=== PATIENT | female | born 1975 | race Hispanic/Latino ===

== ENCOUNTER 2016-12-09 12:43 | Emergency (ER) | payer MEDICAID, OTHER ==
[2016-12-09 12:43] VITALS: BMI 32.4
--- NOTE | 2016-12-09 14:25 | ED PDOC ---
Lower Extremity Pain/Injury Time Seen by Provider: 12/09/16 13:35 Chief Complaint (Nursing): Lower Extremity Problem/Injury Chief Complaint (Provider): right foot pain History Per: Patient History/Exam Limitations: no limitations Current Symptoms Are (Timing): Still Present Additional Complaint(s): Evelin Fair is a 41 year old female who presents to the emergency department for an evaluation of right foot pain after she caught her toe on the legs of a chair on 12/07/16. Patient states that her right toe bent laterally away from rest of foot, possibly dislocating it. Patient states she popped her toe back into place. She reports taking Tylenol and uses a walking cane temporarily to help relieve pain which has helped. Past Medical History Reviewed: Historical Data, Nursing Documentation, Vital Signs - Medical History PMH: Depression, Gastritis - Surgical History Other surgeries: breast augmentation, facial plastic surgery - Family History Family History: States: No Known Family Hx - Living Arrangements Living Arrangements: With Friends/Others - Social History Current smoker - smoking cessation education provided: Yes Alcohol: None Drugs: Denies - Home Medications Home Medications: Ambulatory Orders Medication Instructions Recorded Albuterol HFA [Ventolin HFA 90 2 puff IH Q4H #1 puff 07/26/15 mcg/actuation (8 g)] Escitalopram [Lexapro] 1 tab PO DAILY 04/01/16 Guaifenesin [Mucinex] 1 tab PO PRN PRN 04/01/16 Ranitidine HCl [Zantac] 1 tab PO DAILY 04/01/16 clonazePAM [Klonopin] 1 tab PO HS 04/01/16 - Allergies Allergies/Adverse Reactions: Allergies Allergy/AdvReac Type Severity Reaction Status Date / Time No Known Allergies Allergy Verified 12/02/15 00:19 Wells Criteria for PE - Wells Criteria for Pulmonary Embolism Clinical Signs and Symptoms of DVT: No P.E is #1 Diagnosis, or Equally Likely: No Heart Rate >100: No Immobilization at least 3 days;Surgery previous 4 weeks: No Previous, objectively diagnosed PE or DVT: No Hemoptysis: No Malignancy w/treatment within 6 months, or palliative: No Total Score: 0 Review of Systems ROS Statement: Except As Marked, All Systems Reviewed And Found Negative Musculoskeletal: Positive for: Foot Pain (right foot injury sustained 2 days ago ) Physical Exam - Reviewed Nursing Documentation Reviewed: Yes Vital Signs Reviewed: Yes - Physical Exam Appears: Positive for: Well, Non-toxic, No Acute Distress Skin: Positive for: Normal Color. Negative for: Rash Extremity: Positive for: Other (mild tenderness 4th and 5th toes and metatarsal regions, no bony deformity noted, full rom of all toes with pain, nontender right ankle). Negative for: Deformity Neurologic/Psych: Positive for: Alert, Oriented - Laboratory Results Urine POC: Negative - ECG O2 Sat by Pulse Oximetry: 99 Pulse Ox Interpretation: Normal - Other Rad Right foot x-ray X-Ray: Interpreted by Me, Viewed By Me X-Ray Interpretation: no fx, no dis Medical Decision Making Medical Decision Making: Initial Impression: Right foot injury Initial Plan: * Urine * Motrin 600mg PO * Xray foot (right) Motrin helped the pain as per patient. X-ray is negative for fracture or dislocation. Patient declined crutches, she has a cane. See procedure note. Patient was referred to podiatry clinic for follow up. Advised NSAID's for pain. Scribe Attestation: Documented by Tonya Garrido, acting as a scribe for Elizabeth Alexander PA-C. Provider Scribe Attestation: All medical record entries made by the Scribe were at my direction and personally dictated by me. I have reviewed the chart and agree that the record accurately reflects my personal performance of the history, physical exam, medical decision making, and the department course for this patient. I have also personally directed, reviewed, and agree with the discharge instructions and disposition. Procedures - Splinting Location: right foot Pre-Made Type: 4th and 5th toes jun tape, then ortho shoe applied to right foot Pre-Proc Neuro Vasc Exam: normal Post-Proc Neuro Vasc Exam: normal Disposition - Clinical Impression Clinical Impression: Toe sprain, Foot contusion - Patient ED Disposition Is Patient to be Admitted: No Counseled Patient/Family Regarding: Studies Performed, Diagnosis, Need For Followup - Disposition Referrals: Podiatry Clinic [Outside] Disposition: Routine/Home Disposition Time: 15:48 Condition: STABLE Additional Instructions: Ice, rest and elevate affected area. Take over the counter advil for pain. Follow up with podiatry clinic for any persistent symptoms. Instructions: Foot Contusion (ED), Foot Sprain (ED)
--- NOTE | 2016-12-09 15:40 | RAD ---
PROCEDURE: Right Foot Radiographs. HISTORY: trauma COMPARISON: None. FINDINGS: BONES: Normal. No fracture. JOINTS: Normal. SOFT TISSUES: Normal. OTHER FINDINGS: None. IMPRESSION: Normal right foot radiographs.
[2016-12-09 15:51] VITALS: BP 132/78; PULSE 80; RESP 18; TEMP 98.7; O2SAT 99
== END 2016-12-09 15:52 | disposition home or self-care (01) ==
LOC: H.ER 12:43
DX: S90.31XA Contusion of right foot, initial encounter (principal); W22.8XXA Striking against or struck by other objects, initial encounter; Y92.89 Other specified places as the place of occurrence of the external cause

== ENCOUNTER 2017-04-14 10:35 | Emergency (ER) | payer MEDICAID, OTHER ==
[2017-04-14 10:58] VITALS: BP 120/80; PULSE 110; RESP 20; TEMP 98.8; O2SAT 98
[2017-04-14 10:59] VITALS: BMI 31.3
--- NOTE | 2017-04-14 11:24 | ED PDOC ---
Lower Extremity Pain/Injury Time Seen by Provider: 04/14/17 11:13 Chief Complaint (Nursing): Lower Extremity Problem/Injury Chief Complaint (Provider): Lower extremity problem History Per: Patient History/Exam Limitations: no limitations Onset/Duration Of Symptoms: Days (x2 weeks) Current Symptoms Are (Timing): Still Present Severity: Mild Pain Scale Rating Of: 6 Additional Complaint(s): Evelin Fair is a 41 year old female, with no past medical history, who presents to the emergency department complaining of left toe pain s/p ingrown toenail removed 2 weeks ago. Patient states the ingrown toenail was removed on [address] Hunter. She reports an increasing pain and now redness to the area. She denies any fever or proximal foot or ankle pain. No further medical complaints. PMD: None provided. Past Medical History Reviewed: Historical Data, Nursing Documentation, Vital Signs Vital Signs: Last Vital Signs Temp 98.8 F 04/14/17 10:57 Pulse 110 H 04/14/17 10:57 Resp 20 04/14/17 10:57 BP 120/80 04/14/17 10:57 Pulse Ox 98 04/14/17 10:57 - Medical History PMH: Depression, Gastritis Denies: Chronic Kidney Disease - Surgical History Surgical History: Denies: Pacemaker - Family History Family History: States: Unknown Family Hx - Social History Current smoker - smoking cessation education provided: Yes (Heavy smoker >10 cigarettes daily ) Alcohol: Social Drugs: Denies - Home Medications Home Medications: Ambulatory Orders Medication Instructions Recorded clonazePAM [Klonopin] 1 tab PO BID 04/01/16 ARIPiprazole [Abilify] 10 mg PO QAM 01/19/17 Pantoprazole [Protonix] 40 mg PO QAM 01/19/17 traZODone [trazODONE HYDROCHLORIDE] 50 mg PO HS PRN 01/19/17 Cephalexin [cephalexin] 500 mg PO TID #21 cap 04/14/17 - Allergies Allergies/Adverse Reactions: Allergies Allergy/AdvReac Type Severity Reaction Status Date / Time No Known Allergies Allergy Verified 01/19/17 09:24 Review of Systems ROS Statement: Except As Marked, All Systems Reviewed And Found Negative Constitutional: Negative for: Fever Musculoskeletal: Positive for: Foot Pain (left toe, with redness). Negative for : Other (proximal foot or ankle pain) Physical Exam - Reviewed Nursing Documentation Reviewed: Yes Vital Signs Reviewed: Yes - Physical Exam Appears: Positive for: Well, Non-toxic, No Acute Distress Head Exam: Positive for: ATRAUMATIC Skin: Positive for: Normal Color, Warm, Dry Eye Exam: Positive for: Normal appearance, EOMI Respiratory: Negative for: Respiratory Distress Extremity: Positive for: Other (Left hallux appears post procedure from ingrown toenail removal. The medial nailbed trace postulance and erythema along margins. ) Neurologic/Psych: Positive for: Alert, Oriented - ECG O2 Sat by Pulse Oximetry: 98 (RA) Pulse Ox Interpretation: Normal Medical Decision Making Medical Decision Making: Initial Impression: toe pain s/p ingrown toe nail removal Initial Plan: --Patient has been soaking daily with no Abx. 1120 -Consult podiatry for disposition Scribe Attestation: Documented by Jose Daniel Santana, acting as a scribe for Albino Pino MD Provider Scribe Attestation: All medical record entries made by the Scribe were at my direction and personally dictated by me. I have reviewed the chart and agree that the record accurately reflects my personal performance of the history, physical exam, medical decision making, and the department course for this patient. I have also personally directed, reviewed, and agree with the discharge instructions and disposition. Disposition - Clinical Impression Clinical Impression: Ingrown toenail - Patient ED Disposition Is Patient to be Admitted: No Counseled Patient/Family Regarding: Studies Performed, Rx Given - Disposition Referrals: Podiatry Clinic [Outside] Disposition: Routine/Home Disposition Time: 13:01 Condition: STABLE Additional Instructions: Wound care as directed from podiatry. Take antibiotic 3x daily for one week. Return to ER for any worse or new symptoms. Prescriptions: Cephalexin [cephalexin] 500 mg PO TID #21 cap Instructions: Ingrown Nail (ED) Forms: [employer] (Nepali)
--- NOTE | 2017-04-14 12:00 | CP.PCM.CON ---
History of Present Illness - History of Present Illness History of Present Illness: 41 year old female with no past medical history seen in ED complaining of painful left big toe. Patient states that she had ingrown toenails removed on bilateral borders of the hallux on March 31 and has noticed increased redness, pain and purulent drainage to the area since that time. Patient states that she has been soaking her foot nightly and has been applying the topical antibiotic that she was given by the pharmacist aide who did her partial nail originally. Patient states that she never received oral antibiotics from her pharmacist aide. She denies any further medical issues at this time. She denies N/V/F /C/CP/SOB Review of Systems - Review of Systems Review of Systems: ROS unremarkable outside of HPI Past Patient History - Past Medical History & Family History Past Medical History?: Yes - Past Social History Alcohol: Social Drugs: Denies - CARDIAC Hx Pacemaker: No - PULMONARY Hx Respiratory Disorders: No - NEUROLOGICAL Hx Neurological Disorder: No - HEENT Hx HEENT Problems: Yes - RENAL Hx Chronic Kidney Disease: No - ENDOCRINE/METABOLIC Hx Endocrine Disorders: No - HEMATOLOGICAL/ONCOLOGICAL Hx Blood Transfusions: No Hx Blood Transfusion Reaction: No - INTEGUMENTARY Hx Dermatological Problems: No - MUSCULOSKELETAL/RHEUMATOLOGICAL Hx Musculoskeletal Disorders: No - GASTROINTESTINAL Hx Gastritis: Yes - GENITOURINARY/GYNECOLOGICAL Hx Genitourinary Disorders: No Other/Comment: ovarian cysts - PSYCHIATRIC Hx Depression: Yes - SURGICAL HISTORY Hx Surgeries: Yes Other/Comment: breast augmentation,liposuction - ANESTHESIA Hx Anesthesia: Yes Hx Anesthesia Reactions: No (PT DENIES REACTIONS) Meds Home Medications: Home Medication List Medication Instructions Recorded Confirmed Type Cephalexin [cephalexin] 500 mg PO TID #21 cap 04/14/17 Rx Allergies/Adverse Reactions: Allergies Allergy/AdvReac Type Severity Reaction Status Date / Time No Known Allergies Allergy Verified 01/19/17 09:24 Physical Exam - Constitutional Appears: Well, Non-toxic, No Acute Distress - Extremities Exam Additional comments: LE focused exam Vasc: DP/PT pulses palpable 2/4 b/l. Skin temperature warm to warm from proximal to distal. CFT < 3 seconds to all digits b/l. Pedal hair growth appreciated. Minimal edema noted to left hallux medial nail border Neuro: Epicritic and protective sensation grossly intact b/l Derm: Evidence of partial nail avulsions at medial and lateral border of left hallux. No clinical signs of infection noted to lateral nail border. Medial nail border noted to be edematous, erythematous, with minimal purulent drainage noted and moderate serous drainage noted from the site MSK: POP to medial hallux nail border of left foot. MMT 5/5 on inversion, eversion, dorsiflexion and plantarflexion of feet b/l. ROM WNL to all major joints of LE - Neurological Exam Neurological exam: Alert, Oriented x3 - Psychiatric Exam Psychiatric exam: Normal Affect, Normal Mood Results - Vital Signs Recent Vital Signs: Last Vital Signs Temp 98.8 F 04/14/17 10:57 Pulse 110 H 04/14/17 10:57 Resp 20 04/14/17 10:57 BP 120/80 04/14/17 10:57 Pulse Ox 98 04/14/17 11:33 Assessment & Plan - Assessment and Plan (Free Text) Assessment: 41 year old female with mildly infected partial nail avulsion site at medial hallux nail border of left foot Plan: Patient seen and evaluated at bedside Charts, labs, vitals reviewed Plan discussed with attending Dr. Mitchell Left hallux anesthestized in local fashion with 3 cc of 1% lidocaine plain Partial nail avulsion site at medial border explored for any remaining nail spicule with a curette- None found Wound dressed with bactroban, DSD Patient instructed to begin nightly soakings in warm water starting tomorrow night and reapply antibiotic ointment and DSD following soakings Patient advised to avoid rigorous activity for next few days and keep site covered at all times RX Keflex tid x one week Patient to f/u in podiatry clinic in one week - Date & Time Date: 04/14/17 Time: 16:44
[2017-04-14] MEDS ORDERED: Lidocaine 1% Inj (20ml) IJ ONE (12:12)
[2017-04-14] MEDS ORDERED: Lidocaine 1% Inj (20ml) ONE (12:16)
== END 2017-04-14 13:26 | disposition home or self-care (01) ==
LOC: H.ER 10:35
DX: L60.0 Ingrowing nail (principal); F17.210 Nicotine dependence, cigarettes, uncomplicated; F32.9 Major depressive disorder, single episode, unspecified; K29.70 Gastritis, unspecified, without bleeding